=== PATIENT | female | born 1960 | race Caucasian/White ===

== ENCOUNTER 2016-03-11 15:01 | Emergency (ER) | payer OTHER ==
[2016-03-11 15:29] VITALS: RESP 16; TEMP 98.2; O2SAT 95
--- NOTE | 2016-03-11 16:12 | EDPHY ---
H & P Stated Complaint: Edema in lower legs since Nov;worse past 2 wks Time Seen by Provider: 03/11/16 15:59 HPI/ROS: CHIEF COMPLAINT: Leg swelling HISTORY OF PRESENT ILLNESS: The patient is a 55-year-old female who comes to the emergency department complaining of leg swelling and edema. She has had the symptoms since her breast reduction surgery in December. She had implants removed. She states that they have gradually increased and have never resolved since that time. She has not yet seen anybody about them other than her holistic practitioner who prescribed her normal medications for her kidneys. She does not have any new a kidney, liver or heart disease. She denies having pain or erythema. No recent trauma. She is not a smoker. She denies shortness of breath. REVIEW OF SYSTEMS: Constitutional: denies: chills, fever, recent illness, recent injury EENTM: denies: blurred vision, double vision, nose congestion Respiratory: denies: cough, shortness of breath Cardiac: denies: chest pain, irregular heart rate, lightheadedness, palpitations Gastrointestinal/Abdominal: denies: abdominal pain, diarrhea, nausea, vomiting, blood streaked stools Genitourinary: denies: dysuria, frequency, hematuria, pain Musculoskeletal: denies: joint pain, muscle pain Skin: denies: lesions, rash, jaundice, bruising Neurological: denies: headache, numbness, paresthesia, tingling, dizziness, weakness Hematologic/Lymphatic: See HPI Immunologic/allergic: denies: HIV/AIDS, transplant EXAM: GENERAL: Well-appearing, well-nourished and in no acute distress. HEAD: Atraumatic, normocephalic. EYES: Pupils equal round and reactive to light, extraocular movements intact, sclera anicteric, conjunctiva are normal. ENT: TMs normal, nares patent, oropharynx clear without exudates. Moist mucous membranes. NECK: Normal range of motion, supple without lymphadenopathy or JVD. LUNGS: Breath sounds clear to auscultation bilaterally and equal. No wheezes rales or rhonchi. HEART: Regular rate and rhythm without murmurs, rubs or gallops. ABDOMEN: Soft, nontender, normoactive bowel sounds. No guarding, no rebound. No masses appreciated. BACK: No CVA tenderness, no spinal tenderness, step-offs or deformities EXTREMITIES: Bilateral edema in lower extremities, nonpitting, non erythematous. No pain, negative Homans. Normal range of motion. No clubbing or cyanosis. NEUROLOGICAL: Cranial nerves II through XII grossly intact. Normal speech, normal gait. 5/5 strength, normal movement in all extremities, normal sensation PSYCH: Normal mood, normal affect. SKIN: Warm, dry, normal turgor, no visible rashes or lesions. Source: Patient Exam Limitations: No limitations - Personal History Current Tetanus Diphtheria and Acellular Pertussis (TDAP): Yes - Medical/Surgical History Hx Asthma: No Hx Chronic Respiratory Disease: No Hx Diabetes: No Hx Cardiac Disease: No Hx Renal Disease: No Hx Cirrhosis: No Hx Alcoholism: No Hx HIV/AIDS: No Hx Splenectomy or Spleen Trauma: No Other PMH: breast surgeries, hx chronic fatigue s/t silicon implant, hx biotoxin illness - Family History Significant Family History: Heart disease - Social History Smoking Status: Former smoker Alcohol Use: Sober Drug Use: None Constitutional: Initial Vital Signs Temperature (C) 36.8 C 03/11/16 15:20 Heart Rate 77 03/11/16 15:20 Respiratory Rate 16 03/11/16 15:20 Blood Pressure 146/62 H 03/11/16 15:20 O2 Sat (%) 95 03/11/16 15:20 O2 Delivery Mode Room Air Allergies/Adverse Reactions: ampicillin Allergy (Mild, Verified 03/11/16 15:30) Rash Home Medications: Medication Instructions Recorded L-Thyroxine 01/11/16 Furosemide [Lasix 20 MG (*)] 20 mg PO DAILY #20 tab 03/11/16 Medical Decision Making - Diagnostics EKG Interpretation: An EKG obtained and was read and documented in trace view. Please see trace view for full reading and report. Sinus rhythm, no ischemic changes, no signs of right heart strain or LVH. ED Course/Re-evaluation: We discussed the lab, EKG and ultrasound results. The patient is relieved. I see no sign of heart failure, renal insufficiency or liver dysfunction. No blood clots. We discussed eating enough protein and I will also put her short- term course of Lasix and she will follow up with her primary care physician. She also asked me about constipation and I suggested [id number] MiraLax. Differential Diagnosis: Partial list of the Differential diagnosis considered include but were not limited to; lower extremity edema, DVT, renal insufficiency , protein deficiency and although unlikely based on the history and physical exam, I also considered liver dysfunction, congestive heart failure, aneurysm. - Data Points Laboratory Results: Laboratory Results 03/11/16 16:10 03/11/16 16:10 03/11/16 16:10 WBC 5.47 10^3/uL (3.80-9.50) RBC 4.21 10^6/uL (4.18-5.33) Hgb 13.5 g/dL (12.6-16.3) Hct 37.8 L % (38.0-47.0) MCV 89.8 fL (81.5-99.8) MCH 32.1 pg (27.9-34.1) MCHC 35.7 g/dL (32.4-36.7) RDW 12.2 % (11.5-15.2) Plt Count 273 10^3/uL (150-400) MPV 9.7 fL (8.7-11.7) Neut % (Auto) 58.6 % (39.3-74.2) Lymph % (Auto) 31.4 % (15.0-45.0) [place] % (Auto) 6.9 % (4.5-13.0) Eos % (Auto) 2.4 % (0.6-7.6) Baso % (Auto) 0.5 % (0.3-1.7) Nucleat RBC Rel Count 0.0 % (0.0-0.2) Absolute Neuts (auto) 3.20 10^3/uL (1.70-6.50) Absolute Lymphs (auto) 1.72 10^3/uL (1.00-3.00) Absolute Monos (auto) 0.38 10^3/uL (0.30-0.80) Absolute Eos (auto) 0.13 10^3/uL (0.03-0.40) Absolute Basos (auto) 0.03 10^3/uL (0.02-0.10) Absolute Nucleated RBC 0.00 10^3/uL (0-0.01) Immature Gran % 0.2 % (0.0-1.1) Immature Gran # 0.01 10^3/uL (0.00-0.10) Sodium 142 mEq/L (134-144) Potassium 3.6 mEq/L (3.5-5.2) Chloride 106 mEq/L (97-110) Carbon Dioxide 27 mEq/l (22-31) Anion Gap 9 mEq/L (8-16) BUN 15 mg/dL (7-23) Creatinine 1.0 mg/dL (0.6-1.0) Estimated GFR 57 Glucose 123 H mg/dL (70-100) Calcium 9.0 mg/dL (8.5-10.4) Total Bilirubin 0.4 mg/dL (0.1-1.4) Conjugated Bilirubin 0.1 mg/dL (0.0-0.5) Unconjugated Bilirubin 0.3 mg/dL (0.0-1.1) AST 20 IU/L (14-46) ALT 21 IU/L (9-52) Alkaline Phosphatase 63 IU/L (38-126) NT-Pro-B Natriuret Pep 59 pg/mL (0-125) Total Protein 6.1 L g/dL (6.3-8.2) Albumin 3.6 g/dL (3.5-5.0) Medications Given: Discontinued Medications Furosemide (Lasix Injection) 40 mg IVP EDNOW ONE Stop: 03/11/16 17:32 Last Admin: 03/11/16 17:42 Dose: 40 mg Departure - Departure Disposition: Home, Routine, Self-Care Clinical Impression: Bilateral lower extremity edema Condition: Fair Instructions: Leg Edema (ED) Referrals: IN STATE,. [Primary Care Provider] - As per Instructions Prescriptions: Furosemide [Lasix 20 MG (*)] 20 mg PO DAILY #20 tab
--- NOTE | 2016-03-11 16:16 | CPEKG ---
Heart Rate: 82 RR Interval: 732 P-R Interval: 176 QRSD Interval: 76 QT Interval: 396 QTC Interval: 463 P Cranberry: 59 QRS Cranberry: 34 T Wave Cranberry: 4 EKG Severity - NORMAL ECG - EKG Impression: SINUS RHYTHM EKG Impression: No sign of right heart strain, no LVH Electronically Signed By: Rosalio Avendaño 11-Mar-2016 16:17:09
[2016-03-11 16:23] LABS: % IMMATURE GRANULYOCYTES 0.2 % (0.0-1.1); ABSOLUTE IMMATURE GRANULOCYTES 0.01 10^3/uL (0.00-0.10); ADD DIFF? NO; ADD MORPH? NO; ADD SCAN? NO; ATYPICAL LYMPHOCYTE FLAG 0 (0-99); FRAGMENT RBC FLAG 0 (0-99); HEMATOCRIT 37.8 % (38.0-47.0); HEMOGLOBIN 13.5 g/dL (12.6-16.3); LEFT SHIFT FLG 0 (0-99); LIPEMIA HEMOLYSIS FLAG 90 (0-99); MEAN CELL HEMOGLOBIN 32.1 pg (27.9-34.1); MEAN CELL HEMOGLOBIN CONCENTR. 35.7 g/dL (32.4-36.7); MEAN CELL VOLUME 89.8 fL (81.5-99.8); MEAN PLATELET VOLUME 9.7 fL (8.7-11.7); PLATELET CLUMPS FLAG 0 (0-99); PLATELET COUNT 273 10^3/uL (150-400); RED BLOOD CELL COUNT 4.21 10^6/uL (4.18-5.33); RED CELL DISTRIBUTION WIDTH 12.2 % (11.5-15.2)
[2016-03-11 16:35] LABS: ALANINE AMINOTRANSFERASE 21 IU/L (9-52); ALBUMIN 3.6 g/dL (3.5-5.0); ALKALINE PHOSPHATASE 63 IU/L (38-126); ANION GAP 9 mEq/L (8-16); ASPARTATE AMINOTRANSFERASE 20 IU/L (14-46); BILIRUBIN,TOTAL 0.4 mg/dL (0.1-1.4); BILIRUBIN-CONJUGATED 0.1 mg/dL (0.0-0.5); BILIRUBIN-UNCONJUGATED 0.3 mg/dL (0.0-1.1); CARBON DIOXIDE 27 mEq/l (22-31); CHLORIDE 106 mEq/L (97-110); GLOMERULAR FILTRATION RATE 57; GLUCOSE 123 mg/dL (70-100); POTASSIUM 3.6 mEq/L (3.5-5.2); SODIUM 142 mEq/L (134-144); TOTAL PROTEIN 6.1 g/dL (6.3-8.2)
--- NOTE | 2016-03-11 17:08 | US ---
Bilateral lower extremity duplex venous Doppler INDICATION: Bilateral leg pain and swelling. TECHNIQUE: Bilateral lower extremity venous Doppler and grayscale evaluation is performed. FINDINGS: There is no evidence for DVT. The visualized superficial and deep systems demonstrate alexandr l flow and compressibility. No fluid collection. No mass. IMPRESSION: Normal bilateral lower extremity duplex venous Doppler. Findings are discussed with Dr. Rosalio Miner.
[2016-03-11] MEDS ORDERED: FUROSEMIDE 40 MG/4 ML VIAL IVP ONE (17:31)
[2016-03-11 17:44] VITALS: BP 138/60; PULSE 71
== END 2016-03-11 17:44 | disposition home or self-care (01) ==
DX: R60.0 Localized edema (principal); Z87.891 Personal history of nicotine dependence
CPT/HCPCS: 96374

== ENCOUNTER 2016-11-19 00:02 | Observation (INO) | payer OTHER ==
--- NOTE | 2016-11-19 00:19 | EDPHY ---
H & P Stated Complaint: COUGH X 1 MONTH GENERAL WEAKNESS , NOT FEELING WELL HPI/ROS: HPI CHIEF COMPLAINT: Cough, feeling bad HISTORY OF PRESENT ILLNESS: This patient very pleasant 48-year-old female she denies any significant medical history does not take any daily medications. She states approximately a month ago she was diagnosed with strep pharyngitis and subsequently about a month ago developed a cough. Yellow sputum. No blood. Chills. And feels warm at times. She states her cough has persisted for the past month. She did not really she does take cefdinir twice a day for 10 days she has been intermittently taking it. The prescription was given to her on the 03 of November and she still has multiple doses left. She complains of generalized weakness pull, not feeling well. Upon arrival to the emergency room she is coughing, wheezing, bronchitic sounding cough. And states that she does not feel well. She denies any chest pain. Does complain of global weakness. Chills. Muscle aches. With nausea. Additionally she feels shortness of breath. Past Medical History: Denies medical history Past Surgical History: Denies surgical history Social History: Denies daily use of drugs alcohol tobacco. Family History: Noncontributory ROS REVIEW OF SYSTEMS: A comprehensive 10 point review of systems is otherwise negative aside from elements mentioned in the history of present illness. Exam Constitutional appears nontoxic, triage nursing summary reviewed, vital signs reviewed, awake/alert. Eyes normal conjunctivae and sclera, EOMI, PERRLA. HENT normal inspection, atraumatic, moist mucus membranes, no epistaxis, neck supple/ no meningismus, no raccoon eyes. Respiratory decreased breath sounds bilaterally, wheezing bilaterally, bronchitic sounding cough, crackles at the left lung base, Cardiovascular rate normal, regular rhythm, no murmur, no edema, distal pulses normal. Gastrointestinal soft, non-tender, no rebound, no guarding, normal bowel sounds, no distension, no pulsatile mass. Genitourinary no CVA tenderness. Musculoskeletal no midline vertebral tenderness, full range of motion, no calf swelling, no tenderness of extremities, no meningismus, good pulses, neurovascularly intact. Skin flushed face, pink, warm, & dry, no rash, skin atraumatic. Neurologic awake, alert and oriented x 3, AAOx3, moves all 4 extremities equally, motor intact, sensory intact, CN II-XII intact, normal cerebellar, normal vision, normal speech. Psychiatric normal mood/affect. Heme/Lymph/Immune no lymphadenopathy. Differential Diagnosis: Includes but is not limited to in a particular order, pneumonia, viral syndrome, bronchitis, reactive airway disease, influenza, infection, sepsis, dehydration, electrolyte disturbance Medical Decision Making: Plan for this patient IV established with IV fluid bolus, for hydration, DuoNeb breathing treatment, blood cultures, lactic acid, two view chest x-ray, EKG. Re-evaluation: EKG interpretation by me on record in [employer] system. Impression time of EKG 1:29 a.m., this is sinus tachycardia rate of 112. Appreciate any signs of acute ischemia. 0448: I did reassess this patient she has had multiple blood pressure is low in the 89-90 range systolic. She was febrile to 102 here in emergency room. On re-examination she does not appear well she appears ill. However I have not found the source of her fever infection. Current blood pressure 97/56. Pulse ox 97% on 2 L, heart rate 68. Chest x-ray has been reviewed by me and I do not appreciate pneumonia. She does have systemic white count. Blood cultures have been pulled. Lactic acid less than 1. Influenza test was negative however clinically she does appear to have the flu versus viral syndrome. Given how ill she appears positive fever leukocytosis soft blood pressures should be admitted to the hospitalist service for observation. Pending blood cultures. Source: Patient - Personal History Current Tetanus/Diphtheria Vaccine: No - Medical/Surgical History Hx Asthma: No Hx Chronic Respiratory Disease: No Hx Diabetes: No Hx Cardiac Disease: No Hx Renal Disease: No Hx Cirrhosis: No Hx Alcoholism: No Hx HIV/AIDS: No Hx Splenectomy or Spleen Trauma: No Other PMH: breast surgeries, hx chronic fatigue s/t silicon implant, hx biotoxin illness - Social History Smoking Status: Former smoker Constitutional: Initial Vital Signs Temperature (C) 38.3 C 11/19/16 00:03 Heart Rate 93 11/19/16 00:03 Respiratory Rate 18 11/19/16 00:03 Blood Pressure 132/78 H 11/19/16 00:03 O2 Sat (%) 94 11/19/16 00:03 O2 Delivery Mode Nasal Cannula O2 (L/minute) 2 Allergies/Adverse Reactions: ampicillin Allergy (Mild, Verified 03/11/16 15:30) Rash Home Medications: Medication Instructions Recorded Cefdinir [Omnicef (*)] 300 mg PO BID 11/19/16 Medical Decision Making - Data Points Laboratory Results: Laboratory Results 11/19/16 00:35 11/19/16 00:35 11/19/16 11/19/16 01:00 00:35 Procalcitonin 0.09 ng/mL ng/mL (0.02-0.10) TSH 2.230 uIU/mL uIU/mL (0.465-4.680) Microbiology Results: MICROBIOLOGY 11/19/16 01:05 Nasal, Sinus - Anaerobic Tube/Swab Respiratory Panel (PCR) - Final No Organism Detected Medications Given: Albuterol (Proventil Neb) 3 ml IH Q2HRS PRN PRN Reason: Short of Breath/Dyspnea Stop: 05/18/17 05:55 Last Admin: 11/19/16 15:34 Dose: 3 ml Albuterol/Ipratropium (Duoneb) 3 ml IH Q6HRS RHONDA Stop: 05/18/17 17:59 Last Admin: 11/19/16 17:07 Dose: Not Given Cefdinir (Omnicef) 300 mg PO BID RHONDA PRN Reason: Protocol Stop: 12/19/16 13:14 Last Admin: 11/19/16 20:52 Dose: 300 mg Enoxaparin Sodium (Lovenox) 40 mg SC DAILY [facility] Stop: 05/18/17 08:59 Last Admin: 11/19/16 09:06 Dose: 40 mg Guaifenesin (Mucinex) 600 mg PO BID [facility] Stop: 05/18/17 20:59 Last Admin: 11/19/16 20:51 Dose: 600 mg Discontinued Medications Acetaminophen (Tylenol) 1,000 mg PO EDNOW ONE Stop: 11/19/16 00:56 Last Admin: 11/19/16 01:02 Dose: 1,000 mg Albuterol/Ipratropium (Duoneb) 3 ml IH EDNOW ONE Stop: 11/19/16 00:26 Last Admin: 11/19/16 01:13 Dose: 3 ml Sodium Chloride (Ns) 2,000 mls @ 0 mls/hr IV ONCE ONE; Wide Open PRN Reason: Protocol Stop: 11/19/16 00:26 Last Admin: 11/19/16 00:56 Dose: 2,000 mls Methylprednisolone Sodium Succinate (Solu-Medrol) 125 mg IVP EDNOW ONE Stop: 11/19/16 00:55 Last Admin: 11/19/16 01:02 Dose: 125 mg Departure - Departure Disposition: [facility] Clinical Impression: Bronchitis, Viral syndrome Fever Qualifiers: Fever type: due to other condition Qualified Code(s): R50.81 - Fever presenting with conditions classified elsewhere Condition: Fair
[2016-11-19] MEDS ORDERED: IPRATROPIUM/ALBUTEROL 3 ML DEYVIAL IH ONE (00:25)
[2016-11-19] MEDS ORDERED: NS 2,000 ML IV ONE (00:25)
[2016-11-19] MEDS ORDERED: methylPREDNISolone SOD SUCC 125 MG/2 ML VIAL IVP ONE (00:54)
[2016-11-19] MEDS ORDERED: ACETAMINOPHEN 500 MG TAB PO ONE (00:55)
[2016-11-19 00:57] LABS: % IMMATURE GRANULYOCYTES 0.5 % (0.0-1.1); ABSOLUTE IMMATURE GRANULOCYTES 0.06 10^3/uL (0.00-0.10); ADD DIFF? NO; ADD MORPH? NO; ADD SCAN? NO; ATYPICAL LYMPHOCYTE FLAG 0 (0-99); FRAGMENT RBC FLAG 0 (0-99); HEMATOCRIT 42.1 % (38.0-47.0); HEMOGLOBIN 14.3 g/dL (12.6-16.3); LEFT SHIFT FLG 10 (0-99); LIPEMIA HEMOLYSIS FLAG 90 (0-99); MEAN CELL HEMOGLOBIN 30.9 pg (27.9-34.1); MEAN CELL VOLUME 90.9 fL (81.5-99.8); MEAN PLATELET VOLUME 9.6 fL (8.7-11.7); PLATELET CLUMPS FLAG 0 (0-99); PLATELET COUNT 221 10^3/uL (150-400); RED BLOOD CELL COUNT 4.63 10^6/uL (4.18-5.33); RED CELL DISTRIBUTION WIDTH 12.7 % (11.5-15.2)
[2016-11-19 01:04] LABS: INR 1.13 (0.83-1.16); PROTIME(PATIENT) 14.4 SEC (12.0-15.0)
[2016-11-19 01:05] LABS: APTT 33.2 SEC (23.0-38.0)
[2016-11-19 01:12] LABS: ALANINE AMINOTRANSFERASE 30 IU/L (9-52); ALBUMIN 4.7 g/dL (3.5-5.0); ALKALINE PHOSPHATASE 76 IU/L (38-126); ANION GAP 15 mEq/L (8-16); ASPARTATE AMINOTRANSFERASE 19 IU/L (14-46); BILIRUBIN,TOTAL 1.3 mg/dL (0.1-1.4); BILIRUBIN-CONJUGATED 0.3 mg/dL (0.0-0.5); CALCIUM 9.8 mg/dL (8.5-10.4); CARBON DIOXIDE 23 mEq/l (22-31); CHLORIDE 102 mEq/L (97-110); CREATININE 1.1 mg/dL (0.6-1.0); GLOMERULAR FILTRATION RATE 51; GLUCOSE 97 mg/dL (70-100); POTASSIUM 3.7 mEq/L (3.5-5.2); SODIUM 140 mEq/L (134-144); TOTAL PROTEIN 7.7 g/dL (6.3-8.2)
[2016-11-19 01:21] LABS: TROPONIN I < 0.012 ng/mL (0.000-0.034)
--- NOTE | 2016-11-19 01:30 | CPEKG ---
Heart Rate: 112 RR Interval: 536 P-R Interval: 160 QRSD Interval: 66 QT Interval: 320 QTC Interval: 437 P [place]: 70 QRS [place]: 33 EKG Severity - BORDERLINE ECG - EKG Impression: SINUS TACHYCARDIA EKG Impression: BORDERLINE T ABNORMALITIES, DIFFUSE LEADS Electronically Signed By: Todd Hadley 19-Nov-2016 08:01:59
[2016-11-19 04:08] LABS: COLOR PALE YELLOW; LEUKOCYTE ESTERASE,URINE NEGATIVE (NEGATIVE); NITRITE,URINE NEGATIVE (NEGATIVE)
[2016-11-19] MEDS ORDERED: ACETAMINOPHEN 325 MG TAB PO PRN (05:53)
[2016-11-19] MEDS ORDERED: diphenhydrAMINE 25 MG CAP PO PRN (05:53)
[2016-11-19] MEDS ORDERED: PROMETHAZINE HCL 25 MG/ML INJ IVP PRN (05:53)
[2016-11-19] MEDS ORDERED: ONDANSETRON 4 MG/2 ML VIAL IVP PRN (05:53)
[2016-11-19] MEDS ORDERED: HYDROCODONE/APAP 5/325 TAB PO PRN (05:53)
[2016-11-19] MEDS ORDERED: LORazepam 0.5 MG TAB PO PRN (05:53)
[2016-11-19] MEDS ORDERED: NS 1,000 ML IV SCH (06:00)
--- NOTE | 2016-11-19 08:48 | PDGENHP ---
History and Physical - Chief Complaint fever, cough - History of Present Illness Source - patient provides history and appears reliable. EMR reviewed and case discussed with ED provider. HPI - Pleasant 56 yo F with pmhx significant for chronic LE edema, hypothyroidism who presents to ED today with complaint of fevers/chills and persistent cough x 1 month. Patient reports symptoms started 1 month ago and she has since been on 4 different antibiotics by her report. Patient also admits however that antibiotics started end of october she has been taking far less than as prescribed and missing days in between. After further discussion patient reports in the last 2-3 days she has had acute symptoms of fevers/chills and productive cough yellow sputum. denies nausea/vomiting/diarrhea. no rhinorrhea but feels congested. + sick contact with similar symptoms 4-5 days prior to onset of symptoms. In the ED, patient received nebulizer and steroids for noted wheezing and patient reports improvement in her symptoms since arrival to the medical floor. She continues to feel very fatigued and tired however her SOB is improved. . History Information - Allergies/Home Medication List Allergies/Adverse Reactions: ampicillin Allergy (Mild, Verified 03/11/16 15:30) Rash Home Medications: Cefdinir 300 BID 11/19/16 [Last Taken Unknown] I have personally reviewed and updated: family history, medical history, social history, surgical history Past Medical History: patient taking l-thyroxine. - Past Medical History Additional medical history: Hypothyroidism, chronic LE edema. pt reports cardiac eval negative for CHF. nodules left upper lung and left thyroid. - Surgical History Additional surgical history: breast augmentation s/p removal of silicone implants. - Family History Additional family history: mother with HTN and hypothyroidism. extended family with CAD. father Alzheimer's dementia. - Social History Smoking Status: Former smoker Alcohol Use: Rarely (two times annually) Drug Use: None Additional social history: COR - FULL. no advanced directive but desires brother and sister to act as proxy if needed. Review of Systems Review of Systems: ROS: 10pt was reviewed & negative except for what was stated in HPI & below Constitutional: Reports: chills, fever, malaise, recent illness EENMT: Reports: nose congestion (denies rhinorrhea. ). Denies: sore throat Respiratory: Reports: cough, shortness of breath, wheezing Gastrointestinal: Denies: vomitting, diarrhea, nausea Genitourinary: Denies: burning, hematuria Muscolosketal: Reports: other. Denies: joint pain Skin: Denies: lesions, rash Neurological: Denies: headache, numbness, weakness Hematologic/Lymphatic: Reports: swollen glands (thyroid, neck) Physical Exam Physical Exam: Temp Pulse Resp BP Pulse Ox 36.6 C 60 20 118/69 96 11/19/16 08:00 11/19/16 08:00 11/19/16 08:00 11/19/16 08:00 11/19/16 08:00 O2 (L/minute) 2 Constitutional: no apparent distress, appears nourished, other (NAD. pleasant adult female lays quietly in bed. appears acutely ill but nontoxic. ) Eyes: PERRL, anicteric sclera, EOMI, No scleral injection Ears, Nose, Mouth, Throat: moist mucous membranes, No poor dentition Cardiovascular: regular rate and rhythym, no murmur, rub, or gallop, edema (2+ nonpitting edema bilateral lower legs. ) Peripheral Pulses: 2+: dorsalis-pedis (R), dorsalis-pedis (L) Respiratory: no respiratory distress, No expiratory wheeze, No rhonchi Gastrointestinal: normoactive bowel sounds, soft, non-tender abdomen, no palpable masses Genitourinary: No no bladder tenderness, No harrell in urethra Skin: warm, normal color, No rash Musculoskeletal: full muscle strength, No pain with ROM Neurologic: AAOx3, sensation intact bilaterally, other (grossly normal exam. ) Psychiatric: interacting appropriately, not anxious Lymph, Heme, Immunologic: no cervical LAD, lymphadenopathy (large submandibular LAD without ttp. ), other (bilateral thyroid enlargement. no nodules palpated. ) Lab Data & Imaging Review 11/19/16 00:35 11/19/16 00:35 WBC 12.75 10^3/uL (3.80-9.50) H 11/19/16 00:35 RBC 4.63 10^6/uL (4.18-5.33) 11/19/16 00:35 Hgb 14.3 g/dL (12.6-16.3) 11/19/16 00:35 Hct 42.1 % (38.0-47.0) 11/19/16 00:35 MCV 90.9 fL (81.5-99.8) 11/19/16 00:35 MCH 30.9 pg (27.9-34.1) 11/19/16 00:35 MCHC 34.0 g/dL (32.4-36.7) 11/19/16 00:35 RDW 12.7 % (11.5-15.2) 10 00:35 Plt Count 221 10^3/uL (150-400) 11/19/16 00:35 MPV 9.6 fL (8.7-11.7) 10 00:35 Neut % (Auto) 86.6 % (39.3-74.2) H 11/19/16 00:35 Lymph % (Auto) 6.2 % (15.0-45.0) L 11/19/16 00:35 [place] % (Auto) 6.2 % (4.5-13.0) 11/19/16 00:35 Eos % (Auto) 0.2 % (0.6-7.6) L 11/19/16 00:35 Baso % (Auto) 0.3 % (0.3-1.7) 11/19/16 00:35 Nucleat RBC Rel Count 0.0 % (0.0-0.2) 11/19/16 00:35 Absolute Neuts (auto) 11.05 10^3/uL (1.70-6.50) H 11/19/16 00:35 Absolute Lymphs (auto) 0.79 10^3/uL (1.00-3.00) L 11/19/16 00:35 Absolute Monos (auto) 0.79 10^3/uL (0.30-0.80) 11/19/16 00:35 Absolute Eos (auto) 0.02 10^3/uL (0.03-0.40) L 11/19/16 00:35 Absolute Basos (auto) 0.04 10^3/uL (0.02-0.10) 11/19/16 00:35 Absolute Nucleated RBC 0.00 10^3/uL (0-0.01) 11/19/16 00:35 Immature Gran % 0.5 % (0.0-1.1) 11/19/16 00:35 Immature Gran # 0.06 10^3/uL (0.00-0.10) 11/19/16 00:35 PT 14.4 SEC (12.0-15.0) 11/19/16 00:35 INR 1.13 (0.83-1.16) 11/19/16 00:35 APTT 33.2 SEC (23.0-38.0) 11/19/16 00:35 VBG Lactic Acid 0.9 mmol/L (0.7-2.1) 11/19/16 00:35 Sodium 140 mEq/L (134-144) 11/19/16 00:35 Potassium 3.7 mEq/L (3.5-5.2) 11/19/16 00:35 Chloride 102 mEq/L (97-110) 11/19/16 00:35 Carbon Dioxide 23 mEq/l (22-31) 11/19/16 00:35 Anion Gap 15 mEq/L (8-16) 11/19/16 00:35 BUN 12 mg/dL (7-23) 11/19/16 00:35 Creatinine 1.1 mg/dL (0.6-1.0) H 11/19/16 00:35 Estimated GFR 51 11/19/16 00:35 Glucose 97 mg/dL (70-100) 11/19/16 00:35 Calcium 9.8 mg/dL (8.5-10.4) 11/19/16 00:35 Total Bilirubin 1.3 mg/dL (0.1-1.4) 11/19/16 00:35 Conjugated Bilirubin 0.3 mg/dL (0.0-0.5) 11/19/16 00:35 Unconjugated Bilirubin 1.0 mg/dL (0.0-1.1) 11/19/16 00:35 AST 19 IU/L (14-46) 11/19/16 00:35 ALT 30 IU/L (9-52) 11/19/16 00:35 Alkaline Phosphatase 76 IU/L (38-126) 11/19/16 00:35 Troponin I < 0.012 ng/mL (0.000-0.034) 11/19/16 00:35 NT-Pro-B Natriuret Pep 336 pg/mL (0-125) H 11/19/16 00:35 Total Protein 7.7 g/dL (6.3-8.2) 11/19/16 00:35 Albumin 4.7 g/dL (3.5-5.0) 11/19/16 00:35 Urine Color PALE YELLOW 11/19/16 03:10 Urine Appearance CLEAR 11/19/16 03:10 Urine pH 5.0 (5.0-7.5) 11/19/16 03:10 Ur Specific [place] 1.006 (1.002-1.030) 11/19/16 03:10 Urine Protein NEGATIVE (NEGATIVE) 11/19/16 03:10 Urine Ketones 1+ (NEGATIVE) H 11/19/16 03:10 Urine Blood NEGATIVE (NEGATIVE) 11/19/16 03:10 Urine Nitrate NEGATIVE (NEGATIVE) 11/19/16 03:10 Urine Bilirubin NEGATIVE (NEGATIVE) 11/19/16 03:10 Urine Urobilinogen NEGATIVE EU (0.2-1.0) 11/19/16 03:10 Ur Leukocyte Esterase NEGATIVE (NEGATIVE) 11/19/16 03:10 Urine Glucose NEGATIVE (NEGATIVE) 11/19/16 03:10 Influenza A & B (PCR) NEGATIVE FOR FLU (NEGATIVE) 11/19/16 01:05 Visualized and Interpreted Chest x-ray results: Yes Chest X-Ray results: other (atelectasis LLL) Visualized and Interpreted imaging results: Yes Visualized and Interpreted EKG results: Yes EKG Interpretation: Positive for: normal sinsus rhythm (tachycardia), NS ST wave abnormalities (< 1mm st depression anterolat leads. brenda cute ST changes. QTc 437) Assessment & Plan Assessment: Bronchitis (Acute) Fever (Acute) Viral syndrome (Acute) 56 yo F presents with c/o acute on chronic respiratory sx. 1. URI - likely viral in etiology with positive sick contacts. patient reports being on multiple antibiotics over the course of 4 weeks without improvement in sx. acute worsening in the last several days with fevers/chills/productive cough but then tells me no significant change. cxr with bronchiolar thickening otherwise no gross consolidations, possible area of atelectasis. patient afebrile since arrival. will continue to monitor. repeat xray tomorrow. incentive spirometry ordered. neg flu. respiratory pcr panel ordered. Patient has been on numerous antibiotics in the last several weeks without change in her sx per patient. continue with supportive care at this time IVF, neb, oxygen prn. 2. SIRS - patient with tachycardia, fever, leukocytosis related to URI. continue supportive care as above. 3. hypoxia - supplemental oxygen. titrate down as tolerated. 4. hypotension - transient patient BPs normal after IVF. 5. MARIZA - likely pre-renal with acute illness. continue IVF hydration overnight. repeat bmp 6. hypothyroidism - thyromegaly present. add on TSH. patient should continue to f/u with PCP regarding nodule. continue l-thyroxine. FEN - IVF. diet as tolerated. electrolyte replacement prn. PPX - SCDs. lovenox. COR - FULL. pt without advanced directive but desires brother/sister to act as proxy if needed.
[2016-11-19] MEDS: ENOXAPARIN 40 MG/0.4 ML SYR SC SCH (09:06)
[2016-11-19] MEDS: ALBUTEROL 3 ML DEYVIAL IH PRN ×2 (10:52→15:34)
--- NOTE | 2016-11-19 13:08 | HOSPPROG ---
Hospitalist Progress Note Assessment/Plan: HPI - Pleasant 56 yo F with pmhx significant for chronic LE edema, hypothyroidism who presents to ED today with complaint of fevers/chills and persistent cough x 1 month. She was admitted earlier this morning by Dr Bond/ came by to check in on her. *URI/most likely viral PCR panel is negative chest xray shows bronchial thickening resumed her home abx will check a procalcitonin to help guide w treatment resumed her home abx for now has had persistent coughing/ Robitussin w codeine prn added duonebs/hx of smoking many years ago *SIRS *Hypoxemia on 2 liters/ stable *Hypotension resolved *MARIZA recheck in a.m. *hypothyroidism: thyromegaly in the past/ TSH is stable *Plan: check labs in a.m./ suspect she will be ready for dc tomorrow, will add duonebs, cough syrup. Subjective: Tara has been feeling poorly / has had a chronic cough, has tried multiple abx without improvement. Objective: Vital Signs Temp Pulse Resp BP Pulse Ox 36.6 C 85 18 109/59 L 93 11/19/16 11:47 11/19/16 11:47 11/19/16 11:47 11/19/16 11:47 11/19/16 11:47 11/18/16 11/19/16 11/20/16 05:59 05:59 05:59 Intake Total 4000 Balance 4000 PT 14.4 SEC (12.0-15.0) 11/19/16 00:35 INR 1.13 (0.83-1.16) 11/19/16 00:35 - Physical Exam Constitutional: no apparent distress, not in pain Eyes: PERRL Ears, Nose, Mouth, Throat: hearing normal Cardiovascular: regular rate and rhythym Respiratory: no respiratory distress, no rales or rhonchi, No expiratory wheeze , No respiratory distress Skin: warm Musculoskeletal: full muscle strength Neurologic: AAOx3 Psychiatric: interacting appropriately, not anxious ICD10 Worksheet Patient Problems: Problems Problem Status Onset Bronchitis Acute Fever Acute Viral syndrome Acute
--- NOTE | 2016-11-19 14:53 | ASMTCMCOM ---
CM Note CM Note Notes: Patient admitted with RUQ pain. He likely has pneumonia. Patient said he's feeling well. Lives independently and does not have any discharge needs. CM available for any changes in plan. Date Signed: 11/19/2016 02:53 PM Electronically Signed By:Kristie Keith RN
[2016-11-19] MEDS: CEFDINIR 300 MG CAP PO SCH ×2 (15:15→20:52)
--- NOTE | 2016-11-19 15:57 | ASMTCMCOM ---
CM Note CM Note Notes: DISREGARD PREVIOUS CASE MANAGEMENT NOTE, WRONG PATIENT This patient admitted with complaint of fever/chills + cough for one month. She most likely has a viral infection. Patient says that she lives with her mother and is normally independent. She should not have any case management needs, but if so, we are happy to help. Date Signed: 11/19/2016 03:56 PM Electronically Signed By:Kristie Keith RN
[2016-11-19] MEDS ORDERED: BENZONATATE 100 MG CAP PO PRN (16:49)
[2016-11-19] MEDS ORDERED: guaiFENesin/CODEINE PHOS 10 ML UDCUP PO PRN (16:49)
[2016-11-19] MEDS: IPRATROPIUM/ALBUTEROL 3 ML DEYVIAL IH SCH ×2 (17:07→21:49)
[2016-11-19] MEDS: guaiFENesin 600 MG TAB.ER PO SCH (20:51)
[2016-11-20 05:12] LABS: % IMMATURE GRANULYOCYTES 0.5 % (0.0-1.1); ABSOLUTE IMMATURE GRANULOCYTES 0.03 10^3/uL (0.00-0.10); ADD DIFF? NO; ADD MORPH? NO; ADD SCAN? NO; ATYPICAL LYMPHOCYTE FLAG 0 (0-99); FRAGMENT RBC FLAG 0 (0-99); HEMATOCRIT 29.8 % (38.0-47.0); HEMOGLOBIN 10.2 g/dL (12.6-16.3); LEFT SHIFT FLG 0 (0-99); LIPEMIA HEMOLYSIS FLAG 90 (0-99); MEAN CELL HEMOGLOBIN 31.3 pg (27.9-34.1); MEAN CELL HEMOGLOBIN CONCENTR. 34.2 g/dL (32.4-36.7); MEAN CELL VOLUME 91.4 fL (81.5-99.8); MEAN PLATELET VOLUME 9.7 fL (8.7-11.7); PLATELET CLUMPS FLAG 20 (0-99); PLATELET COUNT 132 10^3/uL (150-400); RED BLOOD CELL COUNT 3.26 10^6/uL (4.18-5.33); RED CELL DISTRIBUTION WIDTH 12.9 % (11.5-15.2)
[2016-11-20 05:40] LABS: ANION GAP 5 mEq/L (8-16); CALCIUM 8.3 mg/dL (8.5-10.4); CARBON DIOXIDE 23 mEq/l (22-31); CHLORIDE 107 mEq/L (97-110); CREATININE 0.8 mg/dL (0.6-1.0); GLOMERULAR FILTRATION RATE > 60; GLUCOSE 93 mg/dL (70-100); POTASSIUM 3.5 mEq/L (3.5-5.2); SODIUM 135 mEq/L (134-144)
[2016-11-20] MEDS: IPRATROPIUM/ALBUTEROL 3 ML DEYVIAL IH SCH ×3 (06:16→16:11)
[2016-11-20] MEDS: ENOXAPARIN 40 MG/0.4 ML SYR SC SCH (08:35)
[2016-11-20] MEDS: guaiFENesin 600 MG TAB.ER PO SCH (08:35)
[2016-11-20] MEDS: CEFDINIR 300 MG CAP PO SCH (08:35)
[2016-11-20] MEDS ORDERED: predniSONE 20 MG TAB PO SCH (09:00)
[2016-11-20] MEDS ORDERED: guaiFENesin 600 MG TAB.ER PO SCH (10:45)
[2016-11-20 11:22] VITALS: BP 121/63; TEMP 98.3
[2016-11-20 16:25] VITALS: PULSE 86; RESP 12; O2SAT 96
--- NOTE | 2016-11-20 16:54 | PDDCSUM ---
Discharge Summary Discharge Summary: DISCHARGE SUMMARY FOLLOW-UP ITEMS: Blood cultures pending at time of discharge DATE OF ADMISSION: 11/19/2016 DATE OF DISCHARGE: 11/20/2017 DISCHARGE DIAGNOSES: 1. Acute left lower lobe pneumonia 2. Systemic inflammatory response syndrome 3. Acute kidney injury 4. Possible atelectasis CONSULTATIONS: None PROCEDURES / IMAGING: Chest x-ray demonstrating left lower lobe infiltrate CHIEF COMPLAINT: Cough and general malaise SUBJECTIVE: Patient is feeling somewhat better at time of discharge, she continues to experience cough intermittently PHYSICAL EXAM ON DISCHARGE: Systolic blood pressure 100, heart rate 70, satting 94% on room air, faint inspiratory crackles in the left base without any expiratory wheezes or bronchial breath sounds, alert awake oriented x3, motor strength is 5/5 bilaterally LABS ON DISCHARGE: Like acid normal, white blood cell count down trended to 6600, potassium 3.5, procalcitonin 0.09, respiratory viral panel is negative HOSPITAL COURSE BY PROBLEM: The patient presented with a systemic inflammatory response syndrome most likely provoked by left lower lobe pneumonia, evidenced by temperature of 39.2degrees C, heart rate of 105, respirations of 22 as well as leukocytosis. Her chest x-ray demonstrated a faint left lower lobe infiltrate which seemed to increase in density after receiving IV fluids. The patient had been on an inappropriately low dose of cefdinir for the past 17 days, and we decided to adjust her to a different class of antibiotics, notably levofloxacin 750 mg daily for 5 total days. We also recommended initiation of steroids in order to improve clinical resolution of symptoms, with as needed albuterol, as needed Tessalon, scheduled Mucinex. The patient was otherwise ruled out for other sources of infection with no growth on blood cultures, negative respiratory viral panel, normal urinalysis, and no other localizing symptoms. She did have acute kidney injury secondary to hypovolemia and this was treated effectively with IV fluids. She did have hypoxemia on presentation and this was stabilized with treatment of above, she was satting well on room air time of discharge. DISCHARGE MEDICATIONS: Please see official discharge medication reconciliation sheet in chart , levofloxacin 750 mg daily for the next 4 days, prednisone 60 mg times 3 days, albuterol inhaler as needed, Tessalon Perles as needed, Mucinex scheduled. DISCHARGE INSTRUCTIONS: Please establish primary care at [facility] with Cristina Felipe or 1st available provider.
--- NOTE | 2016-11-21 09:33 | ASDISCHSUM ---
Discharge Information Plan Status:Home with No Needs Medically Cleared to Leave:11/20/2016 Discharge Date:11/20/2016 05:20 PM CM D/C Disposition: ADT D/C Disposition:Home, Routine, Self-Care Projected Discharge Date:11/20/2016 12:00 AM Transportation at D/C: Discharge Delay Reason: Follow-Up Date:11/20/2016 12:00 AM Discharge Slot: Final Diagnosis: Placement Information Patient Contact Information Contact Name:PARESH Relationship: Address: Work Phone: City: [facility] Phone: State/Zip Code: Email: Financial Information Financial Class:HMO and PPO Plans Primary Plan Desc:[employer] Primary Plan Number:[id number] Secondary Plan Desc: Secondary Plan Number: Assessment Information [facility] CM Progress Note CM Note CM Note Notes: DISREGARD PREVIOUS CASE MANAGEMENT NOTE, WRONG PATIENT This patient admitted with complaint of fever/chills + cough for one month. She most likely has a viral infection. Patient says that she lives with her mother and is normally independent. She should not have any case management needs, but if so, we are happy to help. Date Signed: 11/19/2016 03:56 PM Electronically Signed By:Kristie Keith RN Intervention Information
== END 2016-11-20 17:20 | disposition home or self-care (01) ==
LOC: F3E 05:31
PROVIDERS: ADMIT Family Medicine; ATTEND Family Medicine
DX: J18.1 Lobar pneumonia, unspecified organism (principal); R65.10 Systemic inflammatory response syndrome (SIRS) of non-infectious origin without acute organ dysfunction; N17.9 Acute kidney failure, unspecified; Z87.891 Personal history of nicotine dependence
CPT/HCPCS: 71020; 93005; G0378; 96374; J1650